=== PATIENT | female | born 1960 | race Caucasian/White ===

== ENCOUNTER 2016-08-26 15:49 | Emergency (ER) | payer OTHER, MEDICARE ==
[2016-08-26 17:53] LABS: HEMOGLOBIN 12.3 gm/dl (12.3-15.3); RED BLOOD COUNT 4.05 M/UL (4.00-5.10); WHITE BLOOD COUNT 12.8 K/UL (4.5-11.0)
[2016-08-26 18:08] LABS: BUN/CREATININE RATIO 23 (0-10)
== END 2016-08-26 20:20 | disposition home or self-care (01) ==
LOC: ER1 15:49
PROVIDERS: Emergency Medicine
DX: S29.9XXA Unspecified injury of thorax, initial encounter (principal); S89.91XA Unspecified injury of right lower leg, initial encounter; S89.92XA Unspecified injury of left lower leg, initial encounter; I51.9 Heart disease, unspecified; Z95.5 Presence of coronary angioplasty implant and graft; V49.50XA Passenger injured in collision with unspecified motor vehicles in traffic accident, initial encounter
CPT/HCPCS: 36415; 70450; 71010; 71250; 72125; 73564; 80053; 81001; 82550; 82553; 83874; 84484; 85025; 85610; 85730; 87086; 93005; 99284

== ENCOUNTER → 2020-07-04 | Outpatient (CLI) | payer MEDICARE | LOC: MAMO 08:00 | DX: R22.32 Localized swelling, mass and lump, left upper limb (principal) | CPT/HCPCS: 76881 ==

== ENCOUNTER → 2020-11-06 | Outpatient (CLI) | payer MEDICARE | LOC: MAMO 08-23 10:00 | DX: Z12.31 Encounter for screening mammogram for malignant neoplasm of breast (principal); Z78.0 Asymptomatic menopausal state; M79.643 Pain in unspecified hand | CPT/HCPCS: 73130; 77063; 77067; 77080 ==

== ENCOUNTER → 2021-03-12 | Outpatient (CLI) | payer MEDICARE ==
[~2021-03-12] MED LIST: ADVAIR 250-501 EACH INH; ATENOLOL50 MG PO; AZITHROMYCIN250 MG PO; CEFDINIR300 MG PO; GLIPIZIDE5 MG PO; HYDROCHLOROTHIA25 MG PO; LOSARTAN POTASS25 MG PO; METFORMIN HCL500 MG PO; OMEPRAZOLE40 MG PO; PROAIR HFA8.5 GM INH; SERTRALINE HCL50 MG PO; TRULICITY1.5 MG/0.5 SQ; ZOCOR40 MG PO
== END ==
LOC: EXRD 09:08
DX: J20.9 Acute bronchitis, unspecified (principal); J18.9 Pneumonia, unspecified organism
CPT/HCPCS: 71046

== ENCOUNTER 2021-03-14 11:33 | Inpatient (IN) | payer MEDICARE ==
[~2021-03-14] VITALS: Ht 157.5 cm; Wt 136.1 kg
[2021-03-14 12:33] LABS: HEMOGLOBIN 12.3 gm/dl (12.3-15.3); RED BLOOD COUNT 3.99 M/UL (4.00-5.10)
[2021-03-14 13:08] LABS: BUN/CREATININE RATIO 22 (0-10)
[2021-03-14] MEDS ORDERED: AZITHROMYCIN250 MG PO (17:33)
[2021-03-14] MEDS ORDERED: ATENOLOL50 MG PO (17:33)
[2021-03-14] MEDS ORDERED: ADVAIR 250-501 EACH INH (17:34)
[2021-03-14] MEDS ORDERED: HYDROCHLOROTHIA25 MG PO (17:34)
[2021-03-14] MEDS ORDERED: CEFDINIR300 MG PO (17:34)
[2021-03-14] MEDS ORDERED: GLIPIZIDE5 MG PO (17:34)
[2021-03-14] MEDS ORDERED: TRULICITY1.5 MG/0.5 SQ (17:34)
[2021-03-14] MEDS ORDERED: SERTRALINE HCL50 MG PO (17:35)
[2021-03-14] MEDS ORDERED: LOSARTAN POTASS25 MG PO (17:35)
[2021-03-14] MEDS ORDERED: METFORMIN HCL500 MG PO (17:35)
[2021-03-14] MEDS ORDERED: OMEPRAZOLE40 MG PO (17:35)
[2021-03-14] MEDS ORDERED: ZOCOR40 MG PO (17:36)
[2021-03-14] MEDS ORDERED: PROAIR HFA8.5 GM INH (17:36)
[2021-03-15 06:39] LABS: HEMOGLOBIN 12.1 gm/dl (12.3-15.3); RED BLOOD COUNT 3.98 M/UL (4.00-5.10)
[2021-03-15 06:45] LABS: WHITE BLOOD COUNT 4.9 K/UL (4.5-11.0)
[2021-03-15 07:18] LABS: BUN/CREATININE RATIO 33 (0-10)
[2021-03-16 05:04] LABS: HEMOGLOBIN 11.5 gm/dl (12.3-15.3); RED BLOOD COUNT 3.75 M/UL (4.00-5.10)
[2021-03-16 05:10] LABS: WHITE BLOOD COUNT 7.5 K/UL (4.5-11.0)
[2021-03-16 05:28] LABS: BUN/CREATININE RATIO 45 (0-10)
[2021-03-17 03:51] LABS: HEMOGLOBIN 11.4 gm/dl (12.3-15.3); RED BLOOD COUNT 3.76 M/UL (4.00-5.10); WHITE BLOOD COUNT 8.9 K/UL (4.5-11.0)
[2021-03-17 04:10] LABS: BUN/CREATININE RATIO 48 (0-10)
[2021-03-17] MEDS ORDERED: DECADRON6 MG PO (11:01)
[2021-03-18 07:14] LABS: HEMOGLOBIN 11.8 gm/dl (12.3-15.3); RED BLOOD COUNT 3.9 M/UL (4.00-5.10); WHITE BLOOD COUNT 10.5 K/UL (4.5-11.0)
[2021-03-18 07:38] LABS: BUN/CREATININE RATIO 42 (0-10)
--- NOTE | 2021-03-18 10:58 | NUR ---
RM AIR O2 SAT 81.
== END 2021-03-18 13:22 | disposition home or self-care (01) | DRG 177 ==
LOC: ER1 11:33 → CDU 16:00 → M/S 16:00
PROVIDERS: Physician Assistant; Physician Assistant Medical; ADMIT Internal Medicine
PROC: 8E0ZXY6 Isolation (ICD-10-PCS; principal; 2021-03-14)
PROC: 3E0333Z Introduction of Anti-inflammatory into Peripheral Vein, Percutaneous Approach (ICD-10-PCS; 2021-03-14)
PROC: XW033E5 Introduction of Remdesivir Anti-infective into Peripheral Vein, Percutaneous Approach, New Technology Group 5 (ICD-10-PCS; 2021-03-14)
PROC: XW033H5 Introduction of Tocilizumab into Peripheral Vein, Percutaneous Approach, New Technology Group 5 (ICD-10-PCS; 2021-03-14)
DX: U07.1 COVID-19 (principal); J12.82 Pneumonia due to coronavirus disease 2019; J96.01 Acute respiratory failure with hypoxia; J15.9 Unspecified bacterial pneumonia; J44.0 Chronic obstructive pulmonary disease with (acute) lower respiratory infection; Z68.43 Body mass index [BMI] 50.0-59.9, adult; I10 Essential (primary) hypertension; E11.9 Type 2 diabetes mellitus without complications; E78.5 Hyperlipidemia, unspecified; E66.01 Morbid (severe) obesity due to excess calories; I25.10 Atherosclerotic heart disease of native coronary artery without angina pectoris; K64.8 Other hemorrhoids; E87.6 Hypokalemia; F32.A Depression, unspecified; Z95.1 Presence of aortocoronary bypass graft; Z98.51 Tubal ligation status; Z88.2 Allergy status to sulfonamides; Z88.5 Allergy status to narcotic agent; Z82.49 Family history of ischemic heart disease and other diseases of the circulatory system; Z83.3 Family history of diabetes mellitus; Z87.891 Personal history of nicotine dependence; Z99.81 Dependence on supplemental oxygen; Z79.899 Other long term (current) drug therapy; Z79.84 Long term (current) use of oral hypoglycemic drugs; Z79.52 Long term (current) use of systemic steroids; Z23 Encounter for immunization
CPT/HCPCS: 36415; 36600; 71045; 71046; 80048; 80053; 82550; 82553; 82728; 82803; 82962; 83540; 83550; 83735; 83874; 83880; 84132; 84484; 85025; 85027; 85379; 86140; 93005; 94640; 94664; 94760; 96374; 99285; J0696; J1100; J1650; J7030; Q0249; Q9967; U0002; U0003

== ENCOUNTER → 2021-04-10 | Outpatient (CLI) | payer MEDICARE ==
[~2021-04-10] MED LIST changes: +DECADRON6 MG PO
== END ==
LOC: HEART 5 14:15
DX: R06.00 Dyspnea, unspecified (principal)
CPT/HCPCS: 94010; 94729

== ENCOUNTER → 2021-06-27 | Outpatient (CLI) | payer MEDICARE | LOC: KOH-I 10:57 | DX: R06.00 Dyspnea, unspecified (principal) | CPT/HCPCS: 71250 ==